=== PATIENT | male | born 1970 | race African-American/Black ===

== ENCOUNTER → 2018-10-29 | Day surgery (SDC) | payer BC ==
[~2018-10-29] MED LIST: FLUT9.9S NS; LIDOCAINE 2%/EPI 1:100,000 20 ML VIAL. IJ ONE; LORA10TA3 PO; RANI150C PO
[2018-10-29 08:39] VITALS: BP 134/87
--- NOTE | 2018-10-29 09:57 | PDOC ---
BRIEF OPERATIVE NOTE Date: Oct 29, 2018 Pre-Op Diagnosis recurrent cyst, back Post-Op Diagnosis same Procedure Performed excision Surgeon Madan Anesthesia Type: Local Blood Loss <5cc Specimens Obtained skin and subcutaneous tissue, back 4x3x2 cm Findings recurrent cyst Complications none Operative Note Wk # [id number] TERESE CISNEROS MD Oct 29, 2018 09:57
--- NOTE | 2018-10-29 10:12 | OP ---
DATE OF SURGERY: 10/29/2018 PREOPERATIVE DIAGNOSIS: Recurrent cyst back. POSTOPERATIVE DIAGNOSIS: Recurrent cyst back. PROCEDURE: Excision of same. SPECIMEN: Skin and subcutaneous tissue, mid back, 4 x 3 x 2 cm. ANESTHESIA: Local. SURGEON: Terese Cisneros MD. DESCRIPTION OF PROCEDURE: The patient was taken to the minor procedure room, placed in the prone position and the back prepped and draped in usual sterile fashion. An elliptical skin incision was outlined with a marking pen, infiltrated with 1% lidocaine with epinephrine and incised. The skin and underlying process were removed intact. Hemostasis with cautery and 3-0 Vicryl stick tie. Wound closed with subcutaneous 3-0 Vicryl and a subcuticular 4-0 Monocryl with Steri-Strips. Sterile dressing applied. The patient tolerated procedure well and was released. TERESE CISNEROS MD DR: LESTER/rhiannon JOB#: [id number] / [id number]
--- NOTE | 2018-10-31 16:09 | PATHOLOGY ---
[facility] Accession Number: [id number] . 01 Material submitted: . RECURRENT CYST BACK . 01 Clinical history: . Back cyst . 02 Diagnosis: Skin and subcutaneous tissue, back: - Epidermal inclusion cyst. (JPM:preassembler and inspector; 10/31/2018) MBR/10/31/2018 . 02 Comment: There is no evidence of malignancy. (JPM:preassembler and inspector; 10/30/2018) . 02 Electronically signed: . Franco Nixon MD, Pathologist NPI- [id number] . 01 Gross description: . The specimen is received in formalin, labeled "Slim Valles, recurrent cyst back". Received is an ellipse of brooks-brown, grossly unremarkable skin with attached underlying fibroadipose tissue measuring 3.5 x 2.8 x 2.0 cm in greatest dimensions. Sectioning reveals a unilocular cystic structure measuring 1.3 cm filled with light brown friable material. The specimen is submitted representatively in cassette A1. (CAA; 10/30/2018) QAC/QAC . 02 Pathologist provided ICD-10: L72.0 . 02 CPT . 976864 Specimen Comment: A courtesy copy of this report has been sent to Specimen Comment: [phone], . Specimen Comment: Report sent to / DR XAVIER Specimen Comment: A duplicate report has been generated due to demographic updates. Performed at: 01 [facility] [address], [place] [id number] MD Oscar Mojica MD Phone: [phone] Performed at: 02 [facility] [address] [place], [place] [id number] MD Franco Nixon MD Phone: [phone]
== END | disposition home or self-care (01) ==
LOC: SURG 08:24
PROVIDERS: ATTEND Surgery
DX: L72.0 Epidermal cyst (principal); Z79.899 Other long term (current) drug therapy; Z87.19 Personal history of other diseases of the digestive system; Z90.49 Acquired absence of other specified parts of digestive tract; Z80.1 Family history of malignant neoplasm of trachea, bronchus and lung; Z87.891 Personal history of nicotine dependence; Z72.89 Other problems related to lifestyle
CPT/HCPCS: 11404; 12032; J3490